=== PATIENT | female | born 1960 | race Caucasian/White ===

== ENCOUNTER → 2016-09-11 | Outpatient (CLI) | payer MEDICARE, MEDICAID ==
[~2016-09-11] MED LIST: FLEXERIL5 MG PO; MEDROL8 M1 PO; NORCO 325 MG-51 TAB PO; PRILOSEC 20MG20 MG PO; PROAIR HFA0.09 MG/AC IH; REMERON 15M15 MG/TA1 PO; REQUIP0.25 MG PO; ZESTRIL30 MG PO; ZOLOFT 100MG100 MG PO
== END ==
LOC: BHSO 08:30
DX: F33.41 Major depressive disorder, recurrent, in partial remission (principal)